=== PATIENT | female | born 1990 | race African-American/Black ===

== ENCOUNTER 2017-01-06 10:59 | Emergency (ER) | payer SELFPAY ==
[2017-01-06 11:08] VITALS: BP 132/76
[2017-01-06] MEDS ORDERED: ONDANSETRON 4 MG TAB.RAPDIS PO ONE (11:27)
--- NOTE | 2017-01-06 11:57 | ER Document Report ---
ED GI/ - General Time seen by provider: 11:39 Mode of Arrival: Ambulatory Information source: Patient TRAVEL OUTSIDE OF THE [place] IN LAST 30 DAYS: No - HPI Patient complains to provider of: Abdominal pain, Diarrhea, Vomiting Onset: Other - see HPI note Associated symptoms: Nausea Similar symptoms previously: No Recently seen / treated by doctor: No - General Chief Complaint: Nausea Stated Complaint: NAUSEA Notes: Patient is a 26-year-old female presenting to the emergency department for nausea, vomiting, diarrhea. Patient states her symptoms were onset last night. Patient states that she has vomited 4 times in the last time was 9:00 this morning. Patient states she has had children at home but they're not sick. Patient just recently had her menstrual period. Patient denies any recent travel or eating strange foods. (JAIRO OCAMPO) - Related Data Allergies/Adverse Reactions: [place] And Derivatives Adverse Reaction (Mild, Verified 01/06/17 11:04) carrot Adverse Reaction (Mild, Uncoded 01/06/17 11:04) citrus Adverse Reaction (Mild, Uncoded 01/06/17 11:04) kiwi Adverse Reaction (Mild, Uncoded 01/06/17 11:04) orange Adverse Reaction (Mild, Uncoded 01/06/17 11:04) Past Medical History - General Information source: Patient - Social History Smoking Status: Current Every Day Smoker Chew tobacco use (# tins/day): No Frequency of alcohol use: Social Drug Abuse: None Family History: None Patient has suicidal ideation: No Patient has homicidal ideation: No - Past Medical History Cardiac Medical History: Reports: Hx Hypertension Psychiatric Medical History: Reports: Hx Depression Surgical Hx: Negative - Immunizations Hx Diphtheria, Pertussis, Tetanus Vaccination: Yes Review of Systems - Review of Systems Constitutional: No symptoms reported EENT: No symptoms reported Cardiovascular: No symptoms reported Respiratory: No symptoms reported Gastrointestinal: See HPI, Abdominal pain, Diarrhea, Nausea, Vomiting Genitourinary: No symptoms reported Female Genitourinary: No symptoms reported Musculoskeletal: See HPI, Back pain Skin: No symptoms reported Hematologic/Lymphatic: No symptoms reported Neurological/Psychological: No symptoms reported -: Yes All other systems reviewed and negative Physical Exam - Vital signs Interpretation: Normal - General General appearance: Appears well, Alert In distress: Mild - HEENT Head: Normocephalic, Atraumatic Eyes: Normal Pupils: PERRL Mucous membranes: Moist - Respiratory Respiratory status: No respiratory distress Chest status: Nontender Breath sounds: Normal Chest palpation: Normal - Cardiovascular Rhythm: Regular Heart sounds: Normal auscultation Murmur: No - Abdominal Inspection: Normal Distension: No distension Bowel sounds: Normal Tenderness: Nontender Organomegaly: No organomegaly - Back Back: Normal, Nontender - Extremities General upper extremity: Normal inspection, Normal ROM, Normal strength General lower extremity: Normal inspection, Normal ROM, Normal strength - Neurological Neuro grossly intact: Yes Cognition: Normal Orientation: AAOx4 [place] Coma Scale Eye Opening: Spontaneous Vlad Coma Scale Verbal: Oriented [place] Coma Scale Motor: Obeys Commands Vlad Coma Scale Total: 15 Speech: Normal - Psychological Associated symptoms: Normal affect, Normal mood - Skin Skin Temperature: Warm Skin Moisture: Dry Course - Re-evaluation Re-evalutation: 01/06/17 11:59 Patient previously healthy presents with nausea vomiting and diarrhea that started last night for episodes of each no vomiting since 9:00 this morning no ill contacts. She is previously healthy just got off her. Does not concerned about . Says that when she vomited she feels like she pulled muscles in her lower back. On examination she is well-appearing nontoxic not actively vomiting serial abdominal examination no acute tenderness guarding rebound rigidity she's got some paralumbar muscular skeletal tenderness bilaterally but not midline consistent with muscle strain. Gave her oral Zofran she's doing very well without able to control by mouth fluids and discharge her on Zofran oral hydration and Tylenol Motrin when she feels like she can take it for the low back pain. Her primary care physician to 3 days and discussed reasons for ED return sooner. No acute clinical concerns for acute appendicitis at that time but discussed that with return if symptoms change or worsen she is to return immediately otherwise for primary care physician. 01/06/17 12:02 (OBDULIA SABA) - Vital Signs Vital signs: Temp Pulse Resp BP Pulse Ox 98.4 F 116 H 16 132/76 H 100 01/06/17 11:04 01/06/17 11:04 01/06/17 11:04 01/06/17 11:04 01/06/17 11:04 Discharge - Discharge Clinical Impression: nausea vomiting diarrhea, low back pain Condition: Stable Disposition: HOME, SELF-CARE Additional Instructions: Vomiting Vomiting can be part of many illnesses. Most cases of vomiting are due to gastroenteritis, usually a viral infection in the intestinal tract. There is no specific treatment. The disease will end by itself. For now, the main danger to your child is dehydration. During the first few hours of the illness, give clear liquids, such as Pedialyte. Try to give small quantities frequently, such as a teaspoon of liquid every minute or about an ounce of fluids every five to ten minutes. Medications may be prescribed by the physician for special cases. After an hour or two of fluids without vomiting, add rice cereal, toast, applesauce, or bananas and other more solid foods to the clear liquids. Call the physician or go to the hospital if vomiting increases or blood appears in the bowel movement or vomitus; if your child fails to improve, or if signs of dehydration occur (no wet diapers for eight to twelve hours, tongue and mouth become dry, not acting as alert as usual). Diarrhea Diarrhea means frequent, watery stools. There are many causes. Any problem that keeps the intestinal tract from absorbing water from the stool can lead to diarrhea. A sudden new diarrhea problem is usually caused by a virus, food sensitivity, toxic bacteria, or drugs. In this case, we expect the problem to go away soon. Testing is done only if you seem seriously ill from the diarrhea. If you have chronic diarrhea, or diarrhea that keeps coming back, we need to find out why. Chronic diarrhea can be due to inflammation of the bowels such as Crohn's disease or ulcerative colitis, food sensitivity such as intolerance to lactose or wheat protein, irritable bowel syndrome, and other problems. If your diarrhea is a significant problem but it's not clear why you have it, we' ll refer you to a specialist for further testing. During an episode of diarrhea, drink small amounts (two to six ounces) of clear liquids (soft drinks, sport drinks, herb teas, broth, etc). Take fluids frequently to prevent dehydration. It's usually not a problem to take mild anti- diarrhea medication such as Kaopectate or Pepto-Bismol. As the diarrhea eases, advance to small amounts of bland food (mashed potato, toast) for 24 hours. Call the physician if blood appears in your vomit or stool, if vomiting lasts longer than 24 hours, if the abdominal pain worsens or becomes localized to one area, if you develop high fever, or if you become lightheaded and weak. Low Back Pain Three out of every four people will have an episode of disabling back pain during their lifetime. Most commonly the pain is due to straining of the muscles and ligaments in the low back. Usual treatment includes: (1) Rest on a firm surface. Avoid lying on your stomach. (2) Ice pack the painful area. After a few days, gentle heat may be used intermittently to relax the area, or ice packs can be continued. (3) Medication may be needed -- muscle relaxers and antiinflammatory medicines are commonly used. (4) As the back improves, exercises are prescribed to strengthen the back and abdominal muscles. Your doctor will advise you on the proper care for your back at each stage in your recovery. You may be better in a few days -- or healing may take several weeks. If new symptoms of a "herniated disc" (radiation of pain, numbness, or tingling down the back of the leg or weakness in the leg) occur, you should be re-examined. Further testing may be necessary. Prescriptions: Ondansetron [Zofran Odt 4 mg Tablet] 1 - 2 tab PO Q4H PRN #15 tab.rapdis PRN Reason: For Nausea/Vomiting Forms: Return to Work Referrals: [facility] [Provider Group] (Call for appointment to be seen in 2- 3 days return for increasing worsening or new symptoms) Scribe Attestation: 01/09/17 02:58 i personally performed the services described in the documentation reviewed the documentation recorded by the scribe in my presence and it accurately and completely records my words and actions (OBDULIA SABA) Scribe Documentation - Scribe Written by Sandeep:: Jairo Ocampo 01/06/17 12:05 acting as scribe for :: Samson
== END 2017-01-06 12:03 | disposition home or self-care (01) ==
LOC: ER 10:59
DX: R11.2 Nausea with vomiting, unspecified (principal); R19.7 Diarrhea, unspecified; R10.9 Unspecified abdominal pain; M54.5 Low back pain; I10 Essential (primary) hypertension; F17.200 Nicotine dependence, unspecified, uncomplicated
CPT/HCPCS: 99283; S0119

== ENCOUNTER → 2017-09-28 | Outpatient (CLI) | payer SELFPAY ==
--- NOTE | 2017-09-28 14:12 | RADIOLOGY REPORT (SQ) ---
EXAM DESCRIPTION: U/S [id number] TRNABD 1GES W/ODOP COMPLETED DATE/TIME: 09/28/2017 1:55 pm REASON FOR STUDY: SIZE AND DATES Z34.81 ENCOUNTER FOR SUPRVSN OF NORMAL , FIRST TRIM COMPARISON: None. TECHNIQUE: Transabdominal static and realtime grayscale images acquired of the pelvis. Additional se lected spectral and color Doppler images recorded. All images stored on PACs. bHCG: Not available LIMITATIONS: None. FINDINGS: FETUS: EGA: 11 weeks 5 days EBER: 04/14/2018 CERVICAL LENGTH: 2.8 cm Closed. UTERUS: No masses. RIGHT ADNEXA: Right ovary was not visualized LEFT ADNEXA: Left ovary was not visualized FREE FLUID: None. OTHER: heart rate was 173 beats per minute IMPRESSION: LIVING INTRAUTERINE . ESTIMATED GESTATIONAL AGE:11 weeks 5 days Trimester of : First trimester - 0 to 13 weeks. TECHNICAL DOCUMENTATION: JOB ID: [id number] [employer]- All Rights Reserved
== END ==
LOC: RAD 13:02
PROVIDERS: ATTEND Nurse Practitioner Women's Health
DX: Z34.81 Encounter for supervision of other normal pregnancy, first trimester (principal)
CPT/HCPCS: 76801

== ENCOUNTER → 2017-10-13 | Outpatient (CLI) | payer MEDICAID ==
[2017-10-13 15:33] LABS: ALANINE AMINOTRANSFERASE 22 U/L (9-52); ALBUMIN 4.3 g/dL (3.5-5.0); ALKALINE PHOSPHATASE 40 U/L (38-126); ANION GAP 9 (5-19); ASPARTATE AMINO TRANSFERASE 18 U/L (14-36); BILIRUBIN,DIRECT 0.1 mg/dL (0.0-0.4); BILIRUBIN,TOTAL 0.2 mg/dL (0.2-1.3); BLOOD UREA NITROGEN 6 mg/dL (7-20); CALCIUM 9.7 mg/dL (8.4-10.2); CARBON DIOXIDE 26 mmol/L (22-30); CHLORIDE 102 mmol/L (98-107); GLUCOSE 76 mg/dL (75-110); LDH 325 U/L (313-618); SODIUM 136.9 mmol/L (137-145); URIC ACID 2.5 mg/dL (2.5-6.2)
== END ==
LOC: OD 14:17
PROVIDERS: ATTEND Nurse Practitioner Women's Health
DX: Z34.81 Encounter for supervision of other normal pregnancy, first trimester (principal)
CPT/HCPCS: 36415; 80053; 83615; 84550

== ENCOUNTER 2018-03-28 13:46 | Outpatient (CLI) | payer MEDICAID ==
--- NOTE | 2018-03-28 14:30 | Non Stress Test Report ---
Non Stress Test Datetime Report Generated by CPN: 03/28/2018 14:30 DEMOGRAPHIC EGA NST: 37.4 INDICATION Indication for Study: Ordered by Provider MONITORING Monitor Explained: Monitor Explained; Test Explained; Patient Verbalized Understanding Time on Monitor: 03/28/2018 13:55 Time off Monitor: 03/28/2018 14:28 NST Duration: 33 NST INTERVENTIONS NST Interventions: PO Hydration Physician Notified NST: downey BABY A: [id number] BABY A Movement : Present Contraction Frequency : 0 FHR Baseline : 120 Accelerations : 15X15 Decelerations : None Variability : Moderate 6-25bpm NST Review: Meets Criteria for Reactive NST NST Review and Verified By : Nikky Tracy RN NST Results: Reactive NST REPORT Report Trigger: Send Report
== END 2018-03-28 14:36 | disposition home or self-care (01) ==
LOC: LC 13:46
PROVIDERS: ATTEND Student in an Organized Health Care Education/Training Program
PROC: 4A1HXCZ Monitoring of Products of Conception, Cardiac Rate, External Approach (ICD-10-PCS; principal; 2018-03-28)
DX: Z34.83 Encounter for supervision of other normal pregnancy, third trimester (principal)
CPT/HCPCS: 59025

== ENCOUNTER 2018-04-09 15:09 | Outpatient (CLI) | payer MEDICAID ==
--- NOTE | 2018-04-09 15:59 | Non Stress Test Report ---
Non Stress Test Datetime Report Generated by CPN: 04/09/2018 15:58 DEMOGRAPHIC EGA NST: 39.2 INDICATION Indication for Study: Ordered by Provider VITAL SIGNS RESP - NST: 18 MONITORING Monitor Explained: Monitor Explained; Test Explained; Patient Verbalized Understanding Time on Monitor: 04/09/2018 15:21 Time off Monitor: 04/09/2018 15:56 NST Duration: 35 NST INTERVENTIONS NST Interventions: PO Hydration; Reposition Patient Physician Notified NST: Cat Valenica CNM BABY A: [id number] BABY A Movement : Present Contraction Frequency : none FHR Baseline : 130 Accelerations : 15X15 Decelerations : None Variability : Moderate 6-25bpm NST Review: Meets Criteria for Reactive NST NST Review and Verified By : Lis Colby C NST Results: Reactive NST REPORT Report Trigger: Send Report
== END 2018-04-09 16:14 | disposition home or self-care (01) ==
LOC: LC 15:09
PROVIDERS: ATTEND Student in an Organized Health Care Education/Training Program
PROC: 4A0HXCZ Measurement of Products of Conception, Cardiac Rate, External Approach (ICD-10-PCS; principal; 2018-04-09)
DX: Z04.8 Encounter for examination and observation for other specified reasons (principal); O32.1XX0 Maternal care for breech presentation, not applicable or unspecified; Z3A.39 39 weeks gestation of pregnancy
CPT/HCPCS: 59025

== ENCOUNTER 2018-04-12 09:46 | Inpatient (IN) | payer MEDICAID ==
[2018-04-12] MEDS ORDERED: TERBUTALINE SULFATE INJ/PF 1 MG/1 ML SDV ONE (10:34)
[2018-04-12 10:35] LABS: APPEARANCE,URINE CLEAR; BILIRUBIN,URINE NEGATIVE (NEGATIVE); COLOR,URINE STRAW; GLUCOSE, URINE NEGATIVE (NEGATIVE); KETONES,URINE NEGATIVE (NEGATIVE); LEUKOCYTE ESTERASE,URINE NEGATIVE (NEGATIVE); NITRITE,URINE NEGATIVE (NEGATIVE); PROTEIN,URINE NEGATIVE (NEGATIVE); URINE SPECIFIC GRAVITY 1.003; UROBILINOGEN,URINE NEGATIVE mg/dL (<2.0)
[2018-04-12 10:58] LABS: URINE AMPHETAMINES SCREEN NEGATIVE; URINE BARBITURATES SCREEN NEGATIVE; URINE BENZODIAZEPINES SCREEN NEGATIVE; URINE COCAINE SCREEN NEGATIVE; URINE MARIJUANA (THC) SCREEN NEGATIVE; URINE METHADONE SCREEN NEGATIVE; URINE PHENCYCLIDINE SCREEN NEGATIVE
[2018-04-12 11:18] LABS: UR PRO/CREAT RATIO RESULT 0.7 mg/mg (0.0-0.2); URINE CREATININE 25.3 mg/dL (16-327)
[2018-04-12 11:25] LABS: ABSOLUTE LYMPHOCYTES (AUTO) 2.2 10^3/uL (0.5-4.7); ABSOLUTE MONOCYTES (AUTO) 1.1 10^3/uL (0.1-1.4); BASOPHILS % (AUTO) 0.2 % (0-2); EOSINOPHILS % (AUTO) 0.2 % (0-6); HEMATOCRIT 29.7 % (36.0-47.0); HEMOGLOBIN 10.2 g/dL (12.0-15.5); LYMPHOCYTES % (AUTO) 21.3 % (13-45); MEAN CORPUSCULAR HEMOGLOBIN 30.2 pg (27.0-33.4); MEAN CORPUSCULAR HGB CONC 34.3 g/dL (32.0-36.0); MEAN CORPUSCULAR VOLUME 88 fl (80-97); MONOCYTES % (AUTO) 10.4 % (3-13); PLATELET COUNT 221 10^3/uL (150-450); RED BLOOD COUNT 3.37 10^6/uL (3.72-5.28); RED CELL DISTRIBUTION WIDTH 14.1 % (11.5-14.0); SEGMENTED NEUTROPHILS % (AUTO) 67.9 % (42-78); TOTAL CELLS COUNTED % (AUTO) 100 %; WHITE BLOOD COUNT 10.4 10^3/uL (4.0-10.5)
[2018-04-12 11:53] LABS: ALANINE AMINOTRANSFERASE 20 U/L (9-52); ALBUMIN 3.5 g/dL (3.5-5.0); ALKALINE PHOSPHATASE 86 U/L (38-126); ANION GAP 9 (5-19); ASPARTATE AMINO TRANSFERASE 20 U/L (14-36); BILIRUBIN,DIRECT 0.2 mg/dL (0.0-0.4); BILIRUBIN,TOTAL 0.4 mg/dL (0.2-1.3); BLOOD UREA NITROGEN 4 mg/dL (7-20); CALCIUM 9.1 mg/dL (8.4-10.2); CARBON DIOXIDE 23 mmol/L (22-30); CHLORIDE 107 mmol/L (98-107); GLUCOSE 67 mg/dL (75-110); POTASSIUM 4.1 mmol/L (3.6-5.0); SODIUM 139.3 mmol/L (137-145); TOTAL PROTEIN 6.4 g/dL (6.3-8.2); URIC ACID 3.4 mg/dL (2.5-6.2)
[2018-04-12] MEDS ORDERED: CEFAZOLIN 1 GM/D5W RTU 1 GM/50 ML RTUPB IV ONE (12:40)
--- NOTE | 2018-04-12 12:40 | Admission Physical ---
Datetime Report Generated by CPN: 04/12/2018 12:40 CURRENT ADMISSION Chief Complaint: Sent from OB Office for Evaluation and Treatment - Please Specify Indication for Induction: Not Applicable Admit Impression : Term, Intrauterine ; No Active Labor; Primary Section Admit Impression- Other: HTN with proteinuria, Pre-Eclampsia evaluation Admit Plan- Other: Breech presentation ALLERGIES Medication Allergies: No Medication Allergies: [place] And Derivatives/MT (04/12/2018) Latex: No Latex Allergies OBSTETRICAL HISTORY EDC: 04/14/2018 00:00 : 4 Para: 2 Gestational Diabetes: No Rh Sensitization: No Incompetent Cervix: No EUSEBIA: No Infertility: No ART Treatment: No Uterine Anomaly: No IUGR: No Hx Previous C/S: No Macrosomia: No Hx Loss/Stillborn: No PIH: Yes Hx : No Placenta Previa/Abruption: No Depression/PP Depression: Yes PTL/PROM: No Post Hemorrhage: No Current Procedures: Ultrasound; NST Obstetrical History Comments: G1: 2011 39 weeks G2: 2013 39 weeks HTN G3: current SEE RECORDS Alcohol: No Marijuana : No Cocaine: No Other Illicit Drugs: No Cigarettes: Current Some Day Smoker. [id number] MEDICAL HISTORY Diabetes: No Blood Transfusion: No Pulmonary Disease (Asthma, TB): No Breast Disease: No Hypertension: No Ship/Rec/Doc Control Surgery: No Heart Disease: No Hosp/Surgery: No Autoimmune Disorder: No Anesthetic Complications: No Kidney Disease: Yes Abnormal Pap Smear: No Neuro/Epilepsy: No Psychiatric Disorders: No Other Medical Diseases: No Hepatitis/Liver Disease: No Significant Family History: No Varicosities/Phlebitis: No Trauma/Violence : No Thyroid Dysfunction: No INFECTIOUS HISTORY Gonorrhea: No Genital Herpes: No Chlamydia: Yes Tuberculosis: No Syphilis: No Hepatitis: No HIV/AIDS Exposure: No Rash or Viral Illness: No HPV: No Infectious History Comments: KVNG: 2016 PHYSICAL EXAM General: Normal HEENT: Deferred Neurologic: Normal Thyroid: Deferred Heart: Normal Lungs: Normal Breast: Deferred Back: Deferred Abdomen: Normal Genitourinary Exam: Normal Extremities: Normal DTRs: Deferred Pelvic Type: Adequate VAGINAL EXAM Dilatation: 1 Effacement: 50 Station: -3 MEMBRANES Membranes: Intact FETUS A EGA: 39.5 Monitoring: External US FHR- Baseline: 120 Accelerations: 15X15 Decelerations: None Presentation: Breech Admit Comment: denies h/a, vision changes, abd pain sono today baby still in breech position agrees to primary c/s after evaluation by Dr. Fabian PLANS FOR LABOR AND DELIVERY Labor and Delivery: None Feeding Preference: Breast Benefit of Breast Feed Discussed: Yes Circumcision: N/A INFORMED CONSENT Assignment: Jose Manuel Fabian MD Signature: with User ID: [email or web address] : with User ID: [email or web address]
[2018-04-12] MEDS ORDERED: CITRIC ACID/SODIUM CITRATE ORAL SOLN 15 ML UDCUP ONE (12:41)
[2018-04-12] MEDS ORDERED: OXYTOCIN 10 UNIT/ML VIAL ONE (13:38)
[2018-04-12] MEDS ORDERED: MIDAZOLAM 2 MG/2 ML INJ ONE (13:39)
[2018-04-12] MEDS ORDERED: FENTANYL CITRATE INJ/PF 100 MCG/2 ML AMPUL ONE ×2 (13:39→15:35)
[2018-04-12] MEDS ORDERED: PROPOFOL INJ 200 MG/20 ML VIAL IV ONE (13:39)
[2018-04-12] MEDS ORDERED: EPHEDRINE SULFATE INJ 50 MG/1 ML AMPULE ONE (13:39)
[2018-04-12] MEDS ORDERED: BUPIVACAINE HCL/DEX-WATER/PF 15 MG/2 ML AMPULE ONE (13:43)
[2018-04-12] MEDS ORDERED: PROMETHAZINE HCL INJ 25 MG/1 ML VIAL IV PRN ×2 (14:17→14:31)
[2018-04-12] MEDS ORDERED: FENTANYL CITRATE INJ/PF 100 MCG/2 ML AMPUL IV PRN ×3 (14:17)
[2018-04-12] MEDS ORDERED: DIPHENHYDRAMINE HCL 50 MG/ML VIAL IV PRN (14:17)
[2018-04-12] MEDS ORDERED: MEPERIDINE HCL/PF INJ 25 MG/1 ML DISP.SYRIN IV PRN (14:17)
[2018-04-12] MEDS ORDERED: MORPHINE SULFATE 10 MG/ML INJ IM PRN (14:31)
[2018-04-12] MEDS ORDERED: ACETAMINOPHEN 325 MG TABLET PO PRN (14:31)
[2018-04-12] MEDS ORDERED: DIPH/PERTUSS(ACELL)/TETANUS VAC/PF 0.5 ML SYR (>=10YO) IM PRN (14:31)
[2018-04-12] MEDS ORDERED: OXYCODONE-ACETAMINOPHEN 5-325 MG TABLET PO PRN (14:31)
[2018-04-12] MEDS ORDERED: SIMETHICONE 80 MG TAB.CHEW PO PRN (14:31)
[2018-04-12] MEDS ORDERED: OXYTOCIN/NORMAL SALINE 20 UNIT/1,000 ML RTUINJ IV PRN (14:31)
[2018-04-12] MEDS ORDERED: MEASLES,MUMPS&RUBELLA VACC/PF 0.5 ML VIAL SUBCUT PRN (14:31)
--- NOTE | 2018-04-12 14:33 | PDOC DELIVERY SUMMARY ---
Delivery Summary - Maternal Ruptured Membranes: AROM Fluids: Clear - Delivery Labor: Not In Labor Presentation: Breech Uterine Contraction Monitoring: External Support Person Present: Yes : Primary Nuchal Cord: No - Medications Type of Anesthesia:: Spinal
[2018-04-12] MEDS ORDERED: ACETAMINOPHEN 1,000 MG/100 ML RTUPB IV ONE (14:40)
[2018-04-12] MEDS ORDERED: OXYTOCIN/NORMAL SALINE 20 UNIT/1,000 ML RTUINJ ONE (15:21)
--- NOTE | 2018-04-12 15:21 | OPERATIVE REPORT E ---
Operative Report NAME: PATRICIA HERNANDEZ : 1990 AGE: 27Y DATE OF SURGERY: 04/12/2018 ROOM: LR200 PREOPERATIVE DIAGNOSES: 1. IUP AT TERM WITH BREECH PRESENTATION. 2. GESTATIONAL HYPERTENSION. POSTOPERATIVE DIAGNOSES: 1. IUP AT TERM WITH BREECH PRESENTATION. 2. GESTATIONAL HYPERTENSION. OPERATION: Primary low transverse with delivery of viable female . SURGEON: Karen OSORIO M.D. ANESTHESIA: Spinal. ESTIMATED BLOOD LOSS: Less than 1000 mL. TISSUE REMOVED: Placenta. PROCEDURE: Patient was placed in a supine position and rolled onto the right side, prepped and draped in sterile fashion. A Pfannenstiel incision was made. The incision was extended into the subcutaneous tissue and fascia. Fascia was divided. Rectus muscle bluntly and sharply divided. Parietal peritoneum was entered with sharp dissection. Uterus nicked in midline and extended bilaterally. Infant was then delivered via breech extraction through the uterine and abdominal incision. Nose and mouth suctioned with bulb. Cord was clamped and cut and infant was passed from the table. Placenta was manually extracted. Uterus closed in 2 layers, first with a running stitch of 0 Vicryl and second layer interrupted stitch imbricating the first layer. There was some bleeding on the right side that was controlled with multiple *------* sutures of 0 Vicryl and hemostasis was noted. The fascia was then closed with 0 Vicryl and the skin was closed with subcutaneous absorbable betr. Patient tolerated it well and was taken to recovery in good condition. Her urine remained clear throughout the procedure and the infant went to nursery in good condition. DICTATING PHYSICIAN: Karen OSORIO M.D. [id number] PHY#: [id number] ID: [id number] JOB#: [id number] ACCT: [id number] cc:Karen OSORIO M.D. >
[2018-04-12] MEDS ORDERED: MISOPROSTOL 0.2 MG TABLET ONE (15:28)
[2018-04-12] MEDS: DOCUSATE SODIUM 100 MG CAPSULE PO SCH (17:46)
[2018-04-12] MEDS ORDERED: MORPHINE SULFATE 10 MG/ML INJ IV PRN ×2 (18:13→18:30)
[2018-04-12] MEDS ORDERED: TRANEXAMIC ACID INJ/PF 1,000 MG/10 ML SDV IV ONE (18:36)
[2018-04-12] MEDS ORDERED: ONDANSETRON HCL INJ/PF 4 MG/2 ML SDV ONE (19:13)
[2018-04-12] MEDS ORDERED: PHENYLEPHRINE HCL INJ/PF 10 MG/1 ML SDV ONE (19:13)
[2018-04-12] MEDS ORDERED: DEXAMETHASONE SOD PHOSPHATE INJ 4 MG/1 ML VIAL ONE (19:13)
[2018-04-12] MEDS: KETOROLAC TROMETHAMINE INJ/PF 30 MG/1 ML SDV IV SCH (21:16)
[2018-04-12] MEDS: OXYCODONE-ACETAMINOPHEN 5-325 MG TABLET PO PRN (21:25)
[2018-04-13] MEDS: KETOROLAC TROMETHAMINE INJ/PF 30 MG/1 ML SDV IV SCH ×2 (05:24→13:39)
[2018-04-13] MEDS: OXYCODONE-ACETAMINOPHEN 5-325 MG TABLET PO PRN ×2 (06:06→15:54)
[2018-04-13 06:46] LABS: HEMATOCRIT 22.9 % (36.0-47.0); MEAN CORPUSCULAR HEMOGLOBIN 29.4 pg (27.0-33.4); MEAN CORPUSCULAR HGB CONC 33.4 g/dL (32.0-36.0); MEAN CORPUSCULAR VOLUME 88 fl (80-97); PLATELET COUNT 237 10^3/uL (150-450); RED BLOOD COUNT 2.61 10^6/uL (3.72-5.28); RED CELL DISTRIBUTION WIDTH 14.1 % (11.5-14.0)
[2018-04-13 07:19] LABS: HEMOGLOBIN 7.7 g/dL (12.0-15.5)
--- NOTE | 2018-04-13 08:37 | Delivery Summary ---
Del Sum A-C Datetime Report Generated by CPN: 04/13/2018 08:37 DELIVERY PERSONNEL DELIVERY PERSONNEL: [id number] Delivery Doctor:: Jose Manuel Fabian MD Delivery Doctor:: Jose Manuel Fabian MD Anesthesiologist:: Merna Johnson MD Anesthesiologist:: Merna Johnson MD PHARMACY TEACHER:: Clara Call CRNA PHARMACY TEACHER:: Letha Swift CRNA Labor and Delivery Nurse:: Delores Sparks RN Dredge Pipe Operator:: Delores Sparks RN Dredge Pipe Operator:: Delores Sparks RN Linux Engineer:: Dr. Jewel Bentley [place] Nurse:: Sanjeev Hill RN Pediatric Lpn/DIRECTOR PROCESS: Priyanka Sloan CST Pediatric Lpn/DIRECTOR PROCESS: Priyanka Sloan CST Pediatric Lpn/DIRECTOR PROCESS: Monse Piper CST Pediatric Lpn/DIRECTOR PROCESS: Monse Piper, UPPER EXTREMITY SURGEON MATERNAL INFORMATION Delivery Anesthesia: Spinal Medications After Delivery: Pitocin Drip 20 Units/1000ml NSS; Other-Please Comment Meds After Delivery Comment: CYTOTEC 1000 MCG [place] Maternal Complications: None LABOR SUMMARY EDC: 04/14/2018 00:00 No. Babies in Womb: 1 Attempted: No Labor Anesthesia: None LABOR INFORMATION Reason for Induction: Not Applicable Oxytocin: N/A Group B Beta Strep: negative Antibiotics # of Doses: 1 Antibiotics Time of Last Dose: 4 Name of Antibiotic Given: ancef Steroids Given: None Reason Steroids Not Administered: Not Applicable MEMBRANES Membranes Rupture Method: Artificial Rupture of Membranes: 04/12/2018 14:10 Length of Rupture (hr): 0.00 Amniotic Fluid Color: Clear Amniotic Fluid Amount: Moderate Amniotic Fluid Odor: Normal STAGES OF LABOR Stage 3 hr: 0 Stage 3 min: 1 VAGINAL DELIVERY Episiotomy: None Laceration #1: None Laceration Extension #1: N/A Laceration Repair: Not Applicable Sponge Count Correct: N/A Sharps Count Correct: N/A CSECTION DELIVERY Primary Indication: Breech Presentation Secondary Indication: N/A CSection Urgency: Non-Scheduled CSection Incidence: Primary Labor: N/A Elective: Nonelective CSection Incision: Lower Uterine Transverse BABY A INFORMATION Infant Delivery Date/Time: 04/12/2018 14:10 Method of Delivery: Born in Route : No : N/A Forceps: N/A Vacuum Extraction: N/A Shoulder Dystocia : No PRESENTATION/POSITION BABY A Presentation: Breech Cephalic Presentation: N/A Breech Presentation: Complete PLACENTA INFORMATION BABY A Placenta Delivery Time : 04/12/2018 14:11 Placenta Method of Delivery: Manual Removal Placenta Status: Delivered SCORES BABY A Heart Rate 1 min: >100 bpm Resp Effort 1 min: Good Cry Reflex Irritability 1 min: Cough or Sneeze or Pulls Away Muscle Tone 1 min: Active Motion Color 1 min: Body [place], Extremities Blue Resuscitation Effort 1 min: Tactile Stimulation SCORE 1 MIN: 9 Heart Rate 5 min: >100 bpm Resp Effort 5 min: Good Cry Reflex Irritability 5 min: Cough or Sneeze or Pulls Away Muscle Tone 5 min: Active Motion Color 5 min: Body [place], Extremities Blue Resuscitation Effort 5 min: Tactile Stimulation SCORE 5 MIN: 9 INFANT INFORMATION BABY A Gestational Age at Delivery: 39.5 Gestational Status: Full Term- 39- 40.6 Weeks Infant Outcome : Liveborn Condition : Stable Infant Sex: Female IDENTIFICATION BABY A Verification Date/Time: 04/12/2018 14:15 ID Band Number: [id number] Mother's Name Verified: Yes RN Verifying : R Bridger RN, O Sergio RN WEIGHT/LENGTH BABY A Infant Birthweight (gm): 2800 Weight (lb): 6 Infant Weight (oz): 3 Length (in): 20.00 Infant Length (cm): 50.80 CORD INFORMATION BABY A No. Cord Vessels: 3 Nuchal Cord : N/A Cord Blood Taken: Yes-For Eval (Mom's Blood Type - or O+) Infant Suction: Mouth; Nose ASSESSMENT BABY A Complications: None Physical Findings at Delivery: Within Normal Limits Respirations: Appears Normal Transferred To: Nursery BABY B INFORMATION : N/A SIGNATURES Signature: with User ID: [email or web address] : I was personally available for consultation and serving as supervising physician for the MLP.
--- NOTE | 2018-04-13 08:48 | Delivery Summary ---
Del Sum A-C Datetime Report Generated by CPN: 04/13/2018 08:48 DELIVERY PERSONNEL DELIVERY PERSONNEL: [id number] Delivery Doctor:: Jose Manuel Fabian MD Delivery Doctor:: Jose Manuel Fabian MD Anesthesiologist:: Merna Johnson MD Anesthesiologist:: Merna Johnson MD COUNTER TACKER:: Clara Call CRNA COUNTER TACKER:: Letha Swift CRNA Labor and Delivery Nurse:: Delores Sparks RN Archeology Professor:: Delores Sparks RN Archeology Professor:: Delores Sparks RN Elastic Yarn Twister Helper:: Dr. Jewel Bentley [place] Nurse:: Sanjeev Hill RN Retail Training Manager/MINING SUPPORT WORKER: Priyanka Sloan CST Retail Training Manager/MINING SUPPORT WORKER: Priyanka Sloan CST Retail Training Manager/MINING SUPPORT WORKER: Monse Piper CST Retail Training Manager/MINING SUPPORT WORKER: Monse Piper, AUTOMOBILE SALES CONSULTANT MATERNAL INFORMATION Delivery Anesthesia: Spinal Medications After Delivery: Pitocin Drip 20 Units/1000ml NSS; Other-Please Comment Meds After Delivery Comment: CYTOTEC 1000 MCG [place] Maternal Complications: None LABOR SUMMARY EDC: 04/14/2018 00:00 No. Babies in Womb: 1 Attempted: No Labor Anesthesia: None LABOR INFORMATION Reason for Induction: Not Applicable Oxytocin: N/A Group B Beta Strep: negative Antibiotics # of Doses: 1 Antibiotics Time of Last Dose: 4 Name of Antibiotic Given: ancef Steroids Given: None Reason Steroids Not Administered: Not Applicable MEMBRANES Membranes Rupture Method: Artificial Rupture of Membranes: 04/12/2018 14:10 Length of Rupture (hr): 0.00 Amniotic Fluid Color: Clear Amniotic Fluid Amount: Moderate Amniotic Fluid Odor: Normal STAGES OF LABOR Stage 3 hr: 0 Stage 3 min: 1 VAGINAL DELIVERY Episiotomy: None Laceration #1: None Laceration Extension #1: N/A Laceration Repair: Not Applicable Sponge Count Correct: N/A Sharps Count Correct: N/A CSECTION DELIVERY Primary Indication: Breech Presentation Secondary Indication: N/A CSection Urgency: Non-Scheduled CSection Incidence: Primary Labor: N/A Elective: Nonelective CSection Incision: Lower Uterine Transverse BABY A INFORMATION Infant Delivery Date/Time: 04/12/2018 14:10 Method of Delivery: Born in Route : No : N/A Forceps: N/A Vacuum Extraction: N/A Shoulder Dystocia : No PRESENTATION/POSITION BABY A Presentation: Breech Cephalic Presentation: N/A Breech Presentation: Complete PLACENTA INFORMATION BABY A Placenta Delivery Time : 04/12/2018 14:11 Placenta Method of Delivery: Manual Removal Placenta Status: Delivered SCORES BABY A Heart Rate 1 min: >100 bpm Resp Effort 1 min: Good Cry Reflex Irritability 1 min: Cough or Sneeze or Pulls Away Muscle Tone 1 min: Active Motion Color 1 min: Body [employer], Extremities Blue Resuscitation Effort 1 min: Tactile Stimulation SCORE 1 MIN: 9 Heart Rate 5 min: >100 bpm Resp Effort 5 min: Good Cry Reflex Irritability 5 min: Cough or Sneeze or Pulls Away Muscle Tone 5 min: Active Motion Color 5 min: Body [employer], Extremities Blue Resuscitation Effort 5 min: Tactile Stimulation SCORE 5 MIN: 9 INFANT INFORMATION BABY A Gestational Age at Delivery: 39.5 Gestational Status: Full Term- 39- 40.6 Weeks Infant Outcome : Liveborn Condition : Stable Infant Sex: Female IDENTIFICATION BABY A Verification Date/Time: 04/12/2018 14:15 ID Band Number: [id number] Mother's Name Verified: Yes RN Verifying : R Bridger RN, O Sergio RN WEIGHT/LENGTH BABY A Infant Birthweight (gm): 2800 Weight (lb): 6 Infant Weight (oz): 3 Length (in): 20.00 Infant Length (cm): 50.80 CORD INFORMATION BABY A No. Cord Vessels: 3 Nuchal Cord : N/A Cord Blood Taken: Yes-For Eval (Mom's Blood Type - or O+) Infant Suction: Mouth; Nose ASSESSMENT BABY A Complications: None Physical Findings at Delivery: Within Normal Limits Respirations: Appears Normal Transferred To: Nursery BABY B INFORMATION : N/A SIGNATURES Signature: with User ID: [email or web address] : I was personally available for consultation and serving as supervising physician for the MLP.
[2018-04-13] MEDS: PRENATAL VITAMIN W DHA CAPSULE PO SCH (10:26)
[2018-04-13] MEDS: DOCUSATE SODIUM 100 MG CAPSULE PO SCH ×2 (10:26→17:40)
--- NOTE | 2018-04-13 12:00 | PDOC PROGRESS REPORT ---
Subjective-OB Progress Note for:: 04/13/18 Subjective: reports bleeding slowing, pain controlled with current meds. no complaints or needs expressed, reports passing gas. denies headache/SOB/near syncope/ringing in ears. encouraged to report any of these syptoms. Physical Exam (OB) Vital Signs: Temp Pulse Resp BP Pulse Ox 98.3 F 87 20 127/74 H 99 04/13/18 08:16 04/13/18 08:16 04/13/18 08:16 04/13/18 08:16 04/13/18 08:16 Intake & Output 04/12/18 04/13/18 04/14/18 06:59 06:59 06:59 Output Total 1999 Balance -1999 Weight 79 kg - Dressing Removed: No - silktape clean dry and intact Incision: Dressing - Bilateral Tubal Ligation Dressing Removed: No - Abdomen Description: Tender, Soft Hernia Present: No Fundal Description: Firm Fundal Height: u/u - u/2 > 4/u*- Describe: 150 ml QBL - Abdominal Distension: No distension - Extremities Lower extremities: Austin's sign - neg Calf: Normal, Nontender Objective-Diagnostic Laboratory: 04/13/18 06:10 04/12/18 11:08 04/12/18 04/12/18 04/13/18 11:08 11:08 06:10 WBC 26.0 H D RBC 2.61 L Hgb 7.7 L D Hct 22.9 L MCV 88 MCH 29.4 MCHC 33.4 RDW 14.1 H Plt Count 237 Sodium 139.3 Potassium 4.1 Chloride 107 Carbon Dioxide 23 Anion Gap 9 BUN 4 L Creatinine 0.44 L Est GFR ( Amer) > 60 Est GFR (Non-Af Amer) > 60 Glucose 67 L Uric Acid 3.4 Calcium 9.1 Total Bilirubin 0.4 AST 20 ALT 20 Alkaline Phosphatase 86 Total Protein 6.4 Albumin 3.5 Blood Type O POSITIVE Antibody Screen NEGATIVE Assessment and Plan(PN) - Assessment and Plan (1) Anemia due to acute blood loss Is this a current diagnosis for this admission?: Yes (2) Delivery normal Is this a current diagnosis for this admission?: Yes (3) Qualifiers: Weeks of gestation: unspecified Qualified Code(s): Z34.90 - Encounter for supervision of normal , unspecified, unspecified trimester Is this a current diagnosis for this admission?: Yes - Time Spent with Patient Time with patient: Less than 15 minutes Medications reviewed and adjusted accordingly: Yes - Disposition Anticipated Discharge: Home Within: within 24 hours
[2018-04-13] MEDS: IBUPROFEN 800 MG TABLET PO SCH (17:39)
[2018-04-14] MEDS: IBUPROFEN 800 MG TABLET PO SCH ×4 (00:02→22:32)
[2018-04-14] MEDS ORDERED: NORMAL SALINE 250 ML IV PRN ×2 (07:23→11:27)
[2018-04-14 07:29] LABS: ABSOLUTE EOSINOPHILS # (AUTO) 0.1 10^3/uL (0.0-0.6); ABSOLUTE LYMPHOCYTES (AUTO) 3.1 10^3/uL (0.5-4.7); ABSOLUTE MONOCYTES (AUTO) 0.9 10^3/uL (0.1-1.4); ABSOLUTE NEUT (AUTO) 7.2 10^3/uL (1.7-8.2); BASOPHILS % (AUTO) 0.2 % (0-2); EOSINOPHILS % (AUTO) 0.6 % (0-6); HEMATOCRIT 17.5 % (36.0-47.0); LYMPHOCYTES % (AUTO) 27.7 % (13-45); MEAN CORPUSCULAR HEMOGLOBIN 29.4 pg (27.0-33.4); MEAN CORPUSCULAR HGB CONC 33.6 g/dL (32.0-36.0); MEAN CORPUSCULAR VOLUME 88 fl (80-97); MONOCYTES % (AUTO) 7.6 % (3-13); PLATELET COUNT 201 10^3/uL (150-450); RED CELL DISTRIBUTION WIDTH 14.1 % (11.5-14.0); SEGMENTED NEUTROPHILS % (AUTO) 63.9 % (42-78); TOTAL CELLS COUNTED % (AUTO) 100 %; WHITE BLOOD COUNT 11.3 10^3/uL (4.0-10.5)
[2018-04-14 07:30] LABS: HEMOGLOBIN 5.9 g/dL (12.0-15.5)
--- NOTE | 2018-04-14 10:10 | PDOC PROGRESS REPORT ---
Subjective-OB Progress Note for:: 04/14/18 Subjective: reports bleeding slowing, pain controlled with current meds, reports still feeling very exhausted, has not yet received blood transfusion. agreeable to stay overnight to reassess bleeding Physical Exam (OB) Vital Signs: Temp Pulse Resp BP Pulse Ox 98.5 F 95 18 124/76 95 04/14/18 07:57 04/14/18 07:57 04/14/18 07:57 04/14/18 07:57 04/14/18 07:57 Intake & Output 04/13/18 04/14/18 04/15/18 06:59 06:59 06:59 Output Total 1999 Balance -1999 Weight 79 kg - Dressing Removed: - removed by previous shift Incision: Well Approximated Closure Type: int staple - Bilateral Tubal Ligation Dressing Removed: No - Abdomen Description: Tender, Soft, Round Hernia Present: No Fundal Description: Firm, Midline Fundal Height: u/u - u/2 > 4/u*- Describe: 150 ml QBL - Extremities Lower extremities: Austin's sign - neg Calf: Normal, Nontender Objective-Diagnostic Laboratory: 04/14/18 06:21 04/12/18 11:08 04/12/18 04/14/18 11:08 06:21 WBC 11.3 H RBC 2.00 L Hgb 5.9 L Hct 17.5 L MCV 88 MCH 29.4 MCHC 33.6 RDW 14.1 H Plt Count 201 Seg Neutrophils % 63.9 Lymphocytes % 27.7 Monocytes % 7.6 Eosinophils % 0.6 Basophils % 0.2 Absolute Neutrophils 7.2 Absolute Lymphocytes 3.1 Absolute Monocytes 0.9 Absolute Eosinophils 0.1 Absolute Basophils 0.0 Blood Type O POSITIVE Antibody Screen NEGATIVE Assessment and Plan(PN) - Assessment and Plan (1) Anemia due to acute blood loss Is this a current diagnosis for this admission?: Yes (2) Delivery normal Is this a current diagnosis for this admission?: Yes (3) Qualifiers: Weeks of gestation: unspecified Qualified Code(s): Z34.90 - Encounter for supervision of normal , unspecified, unspecified trimester Is this a current diagnosis for this admission?: Yes - Time Spent with Patient Time with patient: Less than 15 minutes Medications reviewed and adjusted accordingly: Yes - Disposition Anticipated Discharge: Home Within: within 24 hours
[2018-04-14] MEDS: PRENATAL VITAMIN W DHA CAPSULE PO SCH (10:15)
[2018-04-14] MEDS: DOCUSATE SODIUM 100 MG CAPSULE PO SCH ×2 (10:16→17:14)
[2018-04-14] MEDS ORDERED: DIPHENHYDRAMINE HCL 25 MG CAPSULE PO ONE (13:00)
[2018-04-14] MEDS ORDERED: ACETAMINOPHEN 325 MG TABLET PO ONE (13:00)
[2018-04-14] MEDS: OXYCODONE-ACETAMINOPHEN 5-325 MG TABLET PO PRN (14:52)
[2018-04-14] MEDS: FUROSEMIDE 20 MG TABLET PO PRN ×3 (15:36→21:09)
[2018-04-15] MEDS: IBUPROFEN 800 MG TABLET PO SCH ×2 (00:31→06:14)
[2018-04-15 06:06] LABS: ABSOLUTE BASOPHILS # (AUTO) 0.1 10^3/uL (0.0-0.2); ABSOLUTE EOSINOPHILS # (AUTO) 0.1 10^3/uL (0.0-0.6); ABSOLUTE MONOCYTES (AUTO) 0.8 10^3/uL (0.1-1.4); BASOPHILS % (AUTO) 0.4 % (0-2); HEMATOCRIT 25.2 % (36.0-47.0); MEAN CORPUSCULAR HEMOGLOBIN 30.2 pg (27.0-33.4); MEAN CORPUSCULAR HGB CONC 34.5 g/dL (32.0-36.0); MEAN CORPUSCULAR VOLUME 87 fl (80-97); MONOCYTES % (AUTO) 6.7 % (3-13); PLATELET COUNT 203 10^3/uL (150-450); RED BLOOD COUNT 2.88 10^6/uL (3.72-5.28); RED CELL DISTRIBUTION WIDTH 14.7 % (11.5-14.0); SEGMENTED NEUTROPHILS % (AUTO) 66.9 % (42-78); TOTAL CELLS COUNTED % (AUTO) 100 %; WHITE BLOOD COUNT 11.9 10^3/uL (4.0-10.5)
[2018-04-15 06:10] LABS: HEMOGLOBIN 8.7 g/dL (12.0-15.5)
[2018-04-15 09:08] VITALS: BP 134/80
--- NOTE | 2018-04-15 09:15 | PDOC DISCHARGE SUMMARY ---
Final Diagnosis Discharge Date: 04/15/18 - Final Diagnosis (1) Anemia due to acute blood loss Is this a current diagnosis for this admission?: Yes (2) Delivery normal Is this a current diagnosis for this admission?: Yes (3) Is this a current diagnosis for this admission?: Yes Discharge Data - Discharge Medication Prescriptions: Ferrous Sulfate [[place]] 325 mg PO BID #60 tablet Home Medications: Pnv No.95/Ferrous Fum/Folic AC [ Vitamins Tablet] 1 each PO DAILY Docusate Sodium [Colace 100 mg Capsule] 100 mg PO BID capsule 04/15/18 Ferrous Sulfate [[place]] 325 mg PO BID #60 tablet 04/15/18 Ibuprofen [Motrin 800 mg Tablet] 800 mg PO Q6 tablet 04/15/18 Oxycodone HCl/Acetaminophen [Percocet 5-325 mg Tablet] 1 tab PO Q4HP PRN tablet 04/15/18 Procedures: NST Intrapartum Procedure(s): : Low Cervical, Transverse - Diagnosis Test Laboratory: Temp Pulse Resp BP Pulse Ox 98.4 F 78 16 134/80 H 99 04/15/18 08:56 04/15/18 08:56 04/15/18 08:56 04/15/18 08:56 04/15/18 08:56 04/12/18 04/12/18 04/13/18 09:55 11:08 06:10 RBC 3.37 L 2.61 L Hgb 10.2 L 7.7 L D Hct 29.7 L 22.9 L Urine Opiates Screen NEGATIVE 04/14/18 04/15/18 06:21 05:37 RBC 2.00 L 2.88 L Hgb 5.9 L 8.7 L D Hct 17.5 L 25.2 L Urine Opiates Screen - Discharge information/Instructions Discharge Activity: Activity As Tolerated, Balance Activity w/Rest, No Lifting Over 10 Pounds, No Lifting/Push/Pulling, Pelvic Rest, No tub bath Discharge Diet: Regular Disposition: HOME, SELF-CARE Follow up with: [facility] in: 1, Weeks
== END 2018-04-15 10:15 | disposition home or self-care (01) | DRG 765 ==
LOC: LC 09:46 → LR 12:38 → 2S 16:45
PROVIDERS: ADMIT Obstetrics & Gynecology Gynecology; ATTEND Obstetrics & Gynecology Gynecology
PROC: 10D00Z1 Extraction of Products of Conception, Low, Open Approach (ICD-10-PCS; principal; 2018-04-12)
PROC: 0W3N0ZZ Control Bleeding in Female Perineum, Open Approach (ICD-10-PCS; 2018-04-12)
PROC: 30233N1 Transfusion of Nonautologous Red Blood Cells into Peripheral Vein, Percutaneous Approach (ICD-10-PCS; 2018-04-14)
PROC: 30233N1 Transfusion of Nonautologous Red Blood Cells into Peripheral Vein, Percutaneous Approach (ICD-10-PCS; 2018-04-14)
PROC: 30233N1 Transfusion of Nonautologous Red Blood Cells into Peripheral Vein, Percutaneous Approach (ICD-10-PCS; 2018-04-14)
DX: O32.1XX0 Maternal care for breech presentation, not applicable or unspecified (principal); D62 Acute posthemorrhagic anemia; O99.334 Smoking (tobacco) complicating childbirth; F17.210 Nicotine dependence, cigarettes, uncomplicated; O13.4 Gestational [pregnancy-induced] hypertension without significant proteinuria, complicating childbirth; O99.02 Anemia complicating childbirth; O67.8 Other intrapartum hemorrhage; Z3A.39 39 weeks gestation of pregnancy; Z37.0 Single live birth
CPT/HCPCS: 1961; 36415; 36430; 59025; 80053; 80307; 81005; 82570; 83615; 84156; 84550; 85025; 85027; 86850; 86900; 86901; 86920; 94799; J0131; J0690; J1100; J1885; J2250; J2270; J2370; J2405; J2590; J2704; J3010; J3105; J3490; P9016

== ENCOUNTER 2019-08-20 20:42 | Emergency (ER) | payer SELFPAY ==
--- NOTE | 2019-08-20 21:53 | ER Document Report ---
ED Medical Screen (RME) - General Chief Complaint: Sore Throat Stated Complaint: FEVER SORE THROAT Time Seen by Provider: 08/20/19 21:49 Primary Care Provider: ADRIAN OSORIO MD [Primary Care Provider] - Follow up as needed Mode of Arrival: Ambulatory Information source: Patient Notes: 29-year-old female presents emergency department with sore throat body aches night sweats since Monday. Unknown exposure to strep. Has not received a flu vaccine this year. Denies vomiting. Patient talking in a clear voice respiratory rate even unlabored. Patient took Tylenol prior to arrival I have greeted and performed a rapid initial assessment of this patient. A comprehensive ED assessment and evaluation of the patient, analysis of test results and completion of the medical decision making process will be conducted by additional ED providers. Dictation of this chart was performed using voice recognition software; therefore, there may be some unintended grammatical errors. TRAVEL OUTSIDE OF THE [place] IN LAST 30 DAYS: No - Related Data Allergies/Adverse Reactions: [place] And Derivatives Adverse Reaction (Mild, Verified 08/20/19 21:48) carrot Adverse Reaction (Mild, Uncoded 08/20/19 21:48) citrus Adverse Reaction (Mild, Uncoded 08/20/19 21:48) kiwi Adverse Reaction (Mild, Uncoded 08/20/19 21:48) orange Adverse Reaction (Mild, Uncoded 08/20/19 21:48) Past Medical History - Social History Family history: Reviewed & Not Pertinent - Past Medical History Cardiac Medical History: Reports: Hx Hypertension Denies: Hx DVT, Hx Heart Attack Pulmonary Medical History: Denies: Hx Asthma Neurological Medical History: Denies: Hx Migraine Endocrine Medical History: Denies: Hx Diabetes Mellitus Type 1, Hx Diabetes Mellitus Type 2 Renal/ Medical History: Denies: Hx Peritoneal Dialysis, Hx Pelvic Inflammatory Disease, Hx Renal Insufficiency GI Medical History: Denies: Hx Gastritis, Hx Gastroesophageal Reflux Disease Skin Medical History: Denies Hx Cellulitis Psychiatric Medical History: Reports: Hx Depression - Immunizations Hx Diphtheria, Pertussis, Tetanus Vaccination: Yes Physical Exam - Vital signs Vitals: Temp Pulse Resp BP Pulse Ox 98.5 F 98 16 133/82 H 100 08/20/19 21:32 08/20/19 21:32 08/20/19 21:32 08/20/19 21:32 08/20/19 21:32 Course - Vital Signs Vital signs: Temp Pulse Resp BP Pulse Ox 98.5 F 98 16 133/82 H 100 08/20/19 21:48 08/20/19 21:32 08/20/19 21:48 08/20/19 21:32 08/20/19 21:48 Doctor's Discharge - Discharge Referrals: ADRIAN OSORIO MD [Primary Care Provider] - Follow up as needed
[2019-08-20 22:36] LABS: A TYPE INFLUENZA AG NEGATIVE (NEGATIVE); B INFLUENZA AG NEGATIVE (NEGATIVE)
--- NOTE | 2019-08-21 02:18 | ER Document Report ---
HPI - HPI Time Seen by Provider: 08/20/19 21:49 Pain Level: 4 Context: Patient is a 29-year-old female that comes to the emergency department for chief complaint of sore throat for the past several days, she also reports body aches, tiredness, and recurrent fevers. She is able to swallow, she denies cough, congestion, nausea, vomiting, diarrhea. She does report some mild upper abdominal pain which feels like "cramping". She denies current abdominal pain. She denies any daily medications, she denies . She denies any medical history. She denies any obvious sick contacts. - EENT EENT: REPORTS: Sore Throat - REPRODUCTIVE Reproductive: DENIES: : Past Medical History - General Information source: Patient - Social History Smoking Status: Current Every Day Smoker Frequency of alcohol use: None Drug Abuse: None Lives with: Family Family History: None Patient has suicidal ideation: No Patient has homicidal ideation: No - Past Medical History Cardiac Medical History: Denies: Hx DVT, Hx Heart Attack Pulmonary Medical History: Denies: Hx Asthma Neurological Medical History: Denies: Hx Migraine Endocrine Medical History: Denies: Hx Diabetes Mellitus Type 1, Hx Diabetes Mellitus Type 2 Renal/ Medical History: Denies: Hx Peritoneal Dialysis, Hx Pelvic Inflammatory Disease, Hx Renal Insufficiency GI Medical History: Denies: Hx Gastritis, Hx Gastroesophageal Reflux Disease Skin Medical History: Denies Hx Cellulitis Psychiatric Medical History: Reports: Hx Depression Surgical Hx: Negative - Immunizations Hx Diphtheria, Pertussis, Tetanus Vaccination: Yes Vertical Provider Document - CONSTITUTIONAL General Appearance: WD/WN, No Apparent Distress, Thin - INFECTION CONTROL TRAVEL OUTSIDE OF THE [place] IN LAST 30 DAYS: No - HEENT HEENT: Atraumatic, Normocephalic. negative: Normal ENT Exam - Erythema of the posterior pharynx and tonsils but no swelling of the tonsils, normal uvula, patent airway. Normal ears, normal nasal and sinus exams, normal eyes - NECK Neck: Other - Bilateral anterior cervical adenopathy, moderate - RESPIRATORY Respiratory: Breath Sounds Normal, No Respiratory Distress - CARDIOVASCULAR Cardiovascular: Regular Rate, Regular Rhythm - GI/ABDOMEN Gastrointestinal: Abdomen Soft. negative: No Organomegaly - There actually appears to be some mild splenomegaly on exam with some mild tenderness in that area. Remaining abdomen completely benign - BACK Back: Normal Inspection - MUSCULOSKELETAL/EXTREMETIES Musculoskeletal/Extremeties: MAEW, FROM, Non-Tender - NEURO Level of Consciousness: Awake, Alert, Appropriate Motor/Sensory: No Motor Deficit, No Sensory Deficit - DERM Integumentary: Warm, Dry, No Rash Course - Re-evaluation Re-evalutation: Patient with pharyngitis, anterior cervical adenopathy, what appears to be a borderline palpable spleen with some mild tenderness. Negative strep. Presentation is most suggestive of mononucleosis. I did discussed labs with patient but she declined. Patient treated with dexamethasone, discussed my suspicions, precautions, follow-up, return precautions. Patient states understanding and agreement. Stable at time of discharge. - Vital Signs Vital signs: Temp Pulse Resp BP Pulse Ox 98.5 F 98 16 133/82 H 100 08/20/19 21:48 08/20/19 21:32 08/20/19 21:48 08/20/19 21:32 08/20/19 21:48 Discharge - Discharge Clinical Impression: Anterior cervical adenopathy Pharyngitis Qualifiers: Pharyngitis/tonsillitis etiology: unspecified etiology Qualified Code(s): J02.9 - Acute pharyngitis, unspecified Condition: Stable Disposition: HOME, SELF-CARE Additional Instructions: Your evaluation is concerning for mononucleosis "mono". This is a viral illness that resolves with time. We did have a throat culture pending and you will be contacted for any additional results. You have been treated with Decadron to help with your symptoms, rest, take Tylenol and ibuprofen for pain, drink plenty of fluids. Please avoid any activities where you could have injury to your abdomen because you appear to have a swollen spleen on exam. This also resolves with time after a few weeks. Return if you worsen including difficulty swallowing or breathing, severe headache, neck stiffness, severe abdominal pain, or any other concerning symptoms. Forms: Return to Work
[2019-08-21] MEDS ORDERED: DEXAMETHASONE SOD PHOS INJ 10 MG/1 ML VIAL IM ONE (02:25)
[2019-08-21 02:34] VITALS: BP 123/73
== END 2019-08-21 02:35 | disposition home or self-care (01) ==
LOC: ER 20:42
DX: J02.9 Acute pharyngitis, unspecified (principal); R59.0 Localized enlarged lymph nodes; M79.10 Myalgia, unspecified site; R53.83 Other fatigue; R50.9 Fever, unspecified
CPT/HCPCS: 99283; 96372; 87070; 87880; 87804; J1100